=== PATIENT | female | born 1990 | race Caucasian/White ===

== ENCOUNTER 2024-11-08 23:30 | Emergency (ER) | payer BC ==
[~2024-11-08] VITALS: Ht 162.6 cm; Wt 69.0 kg
[2024-11-08 23:34] VITALS: O2SAT 97
[2024-11-09] MEDS: LABETALOL HCL 100MG TABLET PO ONE (01:26)
[2024-11-09 01:46] LABS: BASOPHILS % 0.3 % (0.0-2.0); EOSINOPHILS % 1.3 % (0.0-5.0); HEMATOCRIT. 31.4 % (36.0-48.0); HEMOGLOBIN. 10.9 g/dL (12.0-16.0); LYMPHOCYTES % 13.6 % (20.0-50.0); MEAN PLATELET VOLUME 9.1 fl (7.4-10.4); MONOCYTES % 5.4 % (2.0-8.0); NEUTROPHILS % 79.4 % (40.0-76.0); PLATELET 283 x1000/uL (130-400); RED BLOOD CELL COUNT 3.59 mill/uL (4.2-5.4); RED CELL DISTRIBUTION WIDTH 14.4 % (11.6-14.6)
[2024-11-09 01:59] LABS: CREATININE 0.6 mg/dL (0.6-1.0); UREA NITROGEN BLOOD 11 mg/dL (9-23)
[2024-11-09 02:01] LABS: ASPARTATE AMINOTRANSFERASE 13 IU/L (<34)
[2024-11-09 02:02] LABS: BILIRUBIN DIRECT < 0.1 mg/dL (<=3.0); BILIRUBIN TOTAL 0.2 mg/dL (0.1-1.0); PROTEIN TOTAL 6.9 g/dL (6.0-8.3)
[2024-11-09 02:09] VITALS: BP 160/100; PULSE 96; RESP 15; TEMP 37.1; O2SAT 99
[2024-11-09 02:13] LABS: B-HCG QUANTITATIVE 25344 mIU/mL (<6)
[2024-11-09 02:37] LABS: INR 0.9
== END 2024-11-09 02:32 | disposition short-term general hospital (02) ==
LOC: ER 23:30
DX: O26.892 Other specified pregnancy related conditions, second trimester (principal); O10.912 Unspecified pre-existing hypertension complicating pregnancy, second trimester; R07.81 Pleurodynia; N89.8 Other specified noninflammatory disorders of vagina; Z79.899 Other long term (current) drug therapy; Z3A.17 17 weeks gestation of pregnancy
CPT/HCPCS: 36415; 71045; 76805; 80048; 80076; 84702; 85025; 86850; 86900; 99285